=== PATIENT | female | born 1950 | race African-American/Black ===

== ENCOUNTER 2017-11-07 10:04 | Day surgery (SDC) | payer MEDICARE, OTHER ==
[~2017-11-07] VITALS: Ht 165.1 cm; Wt 70.0 kg
[~2017-11-07 10:04] MED LIST: ALBU2.5V NEB; ALPR-475 PO; ASCO500T23 PO; BUPIVACAINE/PF 0.5% ONE; CYAN10002 IM; EPINEPHRINE 1 MG/ML, 1ML ONE; FOLI0.4T2 PO; GABA600T2 PO; HYDR-3240 PO; HYDR-3245 PO; HYDR-882 PO; HYDR10TA PO; LEVO112T41 PO; LEVO125T PO; LEVO125T5 PO; MULT-658 PO; OLOP2.5D EACHEYE; OMEG1CAP23 PO; OXYC5TAB3 PO; PYRI25TA2 PO; PYRI60TA2 PO; SPIR25TA3 PO; VITA200C33 PO
[2017-11-07] MEDS ORDERED: FENTANYL PF 250 MCG/5ML ONE (10:21)
[2017-11-07] MEDS ORDERED: MIDAZOLAM 1 MG/ML, 2ML ONE (10:21)
[2017-11-07] MEDS ORDERED: PROPOFOL 10 MG/ML, 20ML ONE (10:22)
[2017-11-07] MEDS ORDERED: CEFAZOLIN 1,000 MG ONE ×3 (10:22→13:05)
[2017-11-07] MEDS ORDERED: WATER-INJECTION,STERILE 10 ML IV ONE (10:22)
[2017-11-07] MEDS ORDERED: DEXAMETHASONE 4 MG/ML, 1ML ONE ×2 (10:23)
[2017-11-07] MEDS ORDERED: LIDOCAINE-MPF 1%, 2ML ONE (10:30)
[2017-11-07] MEDS ORDERED: ISOSULFAN BLUE 10 MG/ML, 5ML IV ONE (11:37)
[2017-11-07 11:45] VITALS: BP 105/61
[2017-11-07] MEDS ORDERED: LACTATED RINGERS 1,000 ML IV SCH (11:49)
[2017-11-07] MEDS ORDERED: HYDROCORTISONE 100 MG INJ. ONE (11:54)
[2017-11-07] MEDS ORDERED: GABAPENTIN 300 MG CAPSULE ONE (11:56)
[2017-11-07] MEDS ORDERED: ONDANSETRON ODT 8 MG PO PRN (12:00)
[2017-11-07] MEDS ORDERED: OXYcodone 5 MG/5 ML ORAL.SOL UDC PO PRN (12:00)
[2017-11-07] MEDS ORDERED: hydrALAzine 20 MG/ML, 1ML IV PRN (12:00)
[2017-11-07] MEDS ORDERED: ALBUTEROL SULFATE 2.5 MG/3 ML NPPB PRN (12:00)
[2017-11-07] MEDS ORDERED: PROMETHAZINE 25 MG/ML, 1ML IV PRN (12:00)
[2017-11-07] MEDS ORDERED: GABAPENTIN 300 MG CAPSULE PO ONE (12:00)
[2017-11-07] MEDS ORDERED: LABETALOL 5MG/ML, 20ML IV PRN (12:00)
[2017-11-07] MEDS ORDERED: MEPERIDINE/PF 25MG/0.5ML IVPush PRN (12:00)
[2017-11-07] MEDS ORDERED: PROMETHAZINE 25 MG SUPP PR PRN (12:00)
[2017-11-07] MEDS ORDERED: HYDROmorphone 1 MG/ML, 1ML IV PRN (12:00)
[2017-11-07] MEDS ORDERED: PROMETHAZINE 12.5 MG SUPP PR PRN (12:00)
[2017-11-07] MEDS ORDERED: ACETAMINOPHEN 500 MG TABLET PO ONE (12:00)
[2017-11-07] MEDS ORDERED: SCOPOLAMINE PATCH, 1.5MG PATCH.TD72 TD ONE (12:00)
[2017-11-07] MEDS ORDERED: ONDANSETRON ODT 8 MG PO ONE (12:00)
[2017-11-07] MEDS ORDERED: MORPHINE SULFATE 4 MG/ML, 1ML IVPush PRN ×2 (12:00→17:30)
[2017-11-07] MEDS ORDERED: GENTAMICIN 80 MG/2 ML ONE (13:05)
[2017-11-07] MEDS ORDERED: BACITRACIN 50,000 UNIT ONE (13:06)
[2017-11-07] MEDS ORDERED: FENTANYL PF 100 MCG/2ML ONE (14:20)
[2017-11-07] MEDS: FENTANYL PF 100 MCG/2ML IV PRN ×2 (14:25→15:25)
[2017-11-07] MEDS ORDERED: OXYcodone 5 MG/5 ML ORAL.SOL UDC ONE (15:17)
[2017-11-07] MEDS ORDERED: ONDANSETRON 2MG/ML, 2ML IVPush PRN (17:30)
[2017-11-07] MEDS ORDERED: ONDANSETRON ODT 4 MG PO PRN (17:30)
[2017-11-07 18:33] VITALS: BP 133/64
== END 2017-11-07 18:58 | disposition home or self-care (01) ==
LOC: OUT 10:04 → EDSTATUS 12:30 → 4NOR 16:27 → OUT 18:58
PROVIDERS: ATTEND Surgery
DX: C50.912 Malignant neoplasm of unspecified site of left female breast (principal); Z87.891 Personal history of nicotine dependence; E03.9 Hypothyroidism, unspecified
CPT/HCPCS: 19303; 38525; 38792; 88305; 88307; 88333; 93005; A9541; C1729; C1762; J0171; J0690; J1100; J1580; J1720; J2250; J2704; J3010; J3490; Q0162

== ENCOUNTER 2017-11-29 18:31 | Day surgery (SDC) | payer MEDICARE, OTHER ==
[~2017-11-29 18:31] MED LIST changes: -BUPIVACAINE/PF 0.5% ONE; -EPINEPHRINE 1 MG/ML, 1ML ONE
[2017-11-29] MEDS ORDERED: MIDAZOLAM 1 MG/ML, 2ML ONE (19:34)
[2017-11-29] MEDS ORDERED: PROPOFOL 10 MG/ML, 20ML ONE (19:34)
[2017-11-29] MEDS ORDERED: FENTANYL PF 100 MCG/2ML ONE ×3 (19:34→20:56)
[2017-11-29 19:35] VITALS: BP 117/75
[2017-11-29] MEDS ORDERED: ROCURONIUM 10MG/ML,5ML ONE ×2 (19:35)
[2017-11-29] MEDS ORDERED: MORPHINE SULFATE 4 MG/ML, 1ML IVPush PRN (20:00)
[2017-11-29] MEDS ORDERED: PROMETHAZINE 12.5 MG SUPP PR PRN (20:00)
[2017-11-29] MEDS ORDERED: MEPERIDINE/PF 25MG/0.5ML IVPush PRN (20:00)
[2017-11-29] MEDS ORDERED: hydrALAzine 20 MG/ML, 1ML IV PRN (20:00)
[2017-11-29] MEDS ORDERED: ONDANSETRON ODT 8 MG PO PRN (20:00)
[2017-11-29] MEDS ORDERED: LABETALOL 5MG/ML, 20ML IV PRN (20:00)
[2017-11-29] MEDS ORDERED: OXYcodone 5 MG/5 ML ORAL.SOL UDC PO PRN (20:00)
[2017-11-29] MEDS ORDERED: ACETAMINOPHEN 325 MG TABLET PO PRN (20:00)
[2017-11-29] MEDS ORDERED: HYDROmorphone 1 MG/ML, 1ML IV PRN (20:00)
[2017-11-29] MEDS ORDERED: BUPIVACAINE/PF 0.25% ONE (20:06)
[2017-11-29] MEDS ORDERED: BACITRACIN 50,000 UNIT ONE (20:06)
[2017-11-29] MEDS ORDERED: EPHEDRINE 50 MG/ML, 1ML ONE (20:06)
[2017-11-29] MEDS ORDERED: EPINEPHRINE 1 MG/ML, 1ML ONE (20:06)
[2017-11-29] MEDS ORDERED: CEFAZOLIN 1,000 MG ONE ×3 (20:06→20:23)
[2017-11-29] MEDS ORDERED: GENTAMICIN 80 MG/2 ML ONE (20:06)
[2017-11-29] MEDS ORDERED: DEXAMETHASONE 4 MG/ML, 1ML ONE (20:15)
[2017-11-29] MEDS ORDERED: ONDANSETRON 2MG/ML, 2ML ONE (20:47)
[2017-11-29] MEDS ORDERED: ACETAMINOPHEN 650 MG/20.3 ML UDC ONE (20:56)
[2017-11-29] MEDS ORDERED: OXYcodone 5 MG/5 ML ORAL.SOL UDC ONE (20:56)
[2017-11-29] MEDS: FENTANYL PF 100 MCG/2ML IV PRN ×4 (21:03→21:33)
[2017-11-29] MEDS ORDERED: FLUC150T PO (22:18)
[2017-11-29] MEDS ORDERED: SULF1TAB24 PO (22:18)
[2017-11-29] MEDS ORDERED: AMOX1TAB64 PO (22:19)
== END 2017-11-29 23:00 | disposition home or self-care (01) ==
LOC: OR 18:31 → 4NOR 18:49 → OR 23:00
PROVIDERS: ATTEND Plastic Surgery
DX: T85.79XA Infection and inflammatory reaction due to other internal prosthetic devices, implants and grafts, initial encounter (principal); Y83.8 Other surgical procedures as the cause of abnormal reaction of the patient, or of later complication, without mention of misadventure at the time of the procedure; Y92.89 Other specified places as the place of occurrence of the external cause; Z85.3 Personal history of malignant neoplasm of breast
CPT/HCPCS: 11971; 87070; 87075; 87077; 87186; 87205; C1729; J0690; J1100; J1580; J2250; J2405; J2704; J3010; J3490; J0171

== ENCOUNTER → 2018-04-16 | Outpatient (CLI) | payer MEDICARE, OTHER ==
[~2018-04-16] MED LIST changes: +AMOX1TAB64 PO; +FLUC150T PO; +HYDR-3653 PO; -HYDR-882 PO; +LACT1CAP35 PO; -SPIR25TA3 PO; +SPIR25TA5 PO; +SULF1TAB24 PO; +VENL37.57 PO; +[UNRECOGNIZED DRUG - REMARK] PO
[2018-04-16 14:26] LABS: BASOPHILS # (AUTO) 0.05 x10^3/uL (0-0.1); BASOPHILS % (AUTO) 1 % (0-1); EOSINOPHILS # (AUTO) 0.02 x10^3/uL (0-0.4); EOSINOPHILS % (AUTO) 0 % (1-7); LYMPHOCYTES # (AUTO) 1.76 x10^3/uL (1-3.4); LYMPHOCYTES % (AUTO) 30 % (22-44); MD NO; MEAN CORPUSCULAR HEMOGLOBIN 29.9 pg (27.0-34.8); MEAN CORPUSCULAR HGB CONC 33.5 g/dL (32.4-35.8); MEAN CORPUSCULAR VOLUME 89.2 fL (80-100); MEAN PLATELET VOLUME 7.4 fL (7.4-10.4); MONOCYTES # (AUTO) 0.53 x10^3/uL (0.2-0.8); MONOCYTES % (AUTO) 9 % (2-9); NEUTROPHILS # (AUTO) 3.56 x10^3/uL (1.8-6.8); NEUTROPHILS % (AUTO) 60 % (42-75); PLATELET COUNT 259 x10^3/uL (130-400); RED BLOOD COUNT 5.33 x10^6/uL (3.82-5.3); RED CELL DISTRIBUTION WIDTH 12.7 % (9.6-15.2)
[2018-04-16 14:27] LABS: ALBUMIN 3.8 g/dL (3.4-5.0); ANION GAP 4 mmol/L (5-15); CALCIUM 9.5 mg/dL (8.5-10.1); CHLORIDE 105 mmol/L (98-107)
[2018-04-16 14:31] LABS: ALANINE AMINOTRANSFERASE 28 U/L (12-78); ALKALINE PHOSPHATASE 63 U/L (45-117); BILIRUBIN,TOTAL 0.6 mg/dL (0.2-1.0); CREATININE 0.88 mg/dL (0.55-1.02); TOTAL PROTEIN 8.3 g/dL (6.4-8.2)
== END | disposition home or self-care (01) ==
LOC: STAR 13:04
PROVIDERS: ATTEND Plastic Surgery
DX: Z01.818 Encounter for other preprocedural examination (principal); C50.412 Malignant neoplasm of upper-outer quadrant of left female breast; Z85.3 Personal history of malignant neoplasm of breast
CPT/HCPCS: 36415; 80053; 85025; 93005

== ENCOUNTER 2018-07-24 13:27 | Day surgery (SDC) | payer MEDICARE, OTHER ==
[~2018-07-24] VITALS: Ht 165.1 cm; Wt 69.1 kg
[~2018-07-24 13:27] MED LIST changes: -GABA600T2 PO; +GABA600T7 PO; +THYR90TA PO
[2018-07-24] MEDS ORDERED: LACTATED RINGERS 1,000 ML IV SCH ×2 (14:10→21:43)
[2018-07-24] MEDS ORDERED: GABAPENTIN 300 MG CAPSULE PO ONE (14:30)
[2018-07-24] MEDS ORDERED: ACETAMINOPHEN 500 MG TABLET PO ONE (14:30)
[2018-07-24] MEDS ORDERED: EPINEPHRINE 1 MG/ML, 1ML ONE (17:04)
[2018-07-24] MEDS ORDERED: GENTAMICIN 80 MG/2 ML ONE (17:04)
[2018-07-24] MEDS ORDERED: CEFAZOLIN 1,000 MG ONE (17:04)
[2018-07-24] MEDS ORDERED: LIDOCAINE 1%, 20ML ONE (17:05)
[2018-07-24] MEDS ORDERED: BACITRACIN 50,000 UNIT ONE (17:05)
[2018-07-24] MEDS ORDERED: MIDAZOLAM 1 MG/ML, 2ML ONE (17:33)
[2018-07-24] MEDS ORDERED: FENTANYL PF 100 MCG/2ML ONE ×2 (17:33→19:56)
[2018-07-24] MEDS ORDERED: SODIUM BICARBONATE 1 MEQ/ML, 50ML VIAL ONE (17:36)
[2018-07-24] MEDS ORDERED: LIDOCAINE-MPF 2% ,5ML ONE (17:36)
[2018-07-24] MEDS ORDERED: SUCCINYLCHOLINE 20 MG/ML, 10ML ONE (17:40)
[2018-07-24] MEDS ORDERED: GLYCOPYRROLATE 0.2MG/1ML, 5ML ONE (17:40)
[2018-07-24] MEDS ORDERED: ROCURONIUM 10 MG/ML,10ML ONE (17:40)
[2018-07-24] MEDS ORDERED: PROPOFOL 10 MG/ML, 20ML ONE (17:40)
[2018-07-24] MEDS ORDERED: ONDANSETRON 2MG/ML, 2ML ONE (17:40)
[2018-07-24] MEDS ORDERED: NEOSTIGMINE 1 MG/ML, 10ML ONE (17:40)
[2018-07-24] MEDS ORDERED: DEXAMETHASONE 4 MG/ML, 1ML ONE (17:40)
[2018-07-24] MEDS ORDERED: OXYcodone 5 MG/5 ML ORAL.SOL UDC ONE (19:56)
[2018-07-24] MEDS ORDERED: HYDROmorphone 1 MG/ML, 1ML ONE (19:56)
[2018-07-24] MEDS ORDERED: LABETALOL 5MG/ML, 20ML IV PRN (20:30)
[2018-07-24] MEDS ORDERED: MEPERIDINE/PF 25MG/0.5ML IVPush PRN (20:30)
[2018-07-24] MEDS ORDERED: hydrALAzine 20 MG/ML, 1ML IV PRN (20:30)
[2018-07-24] MEDS ORDERED: ONDANSETRON 2MG/ML, 2ML IV PRN (20:30)
[2018-07-24] MEDS ORDERED: HYDROmorphone 2 MG/ML, 1ML IVPush PRN ×2 (20:30→22:00)
[2018-07-24] MEDS ORDERED: OXYcodone 5 MG/5 ML ORAL.SOL UDC PO PRN (20:30)
[2018-07-24] MEDS ORDERED: PROMETHAZINE 25 MG/ML, 1ML IV PRN (20:30)
[2018-07-24] MEDS ORDERED: FENTANYL PF 100 MCG/2ML IV PRN (20:30)
[2018-07-24] MEDS ORDERED: HYDROcodone/APAP 5/325 TABLET PO PRN (22:00)
== END 2018-07-24 23:34 | disposition home or self-care (01) ==
LOC: OR 13:27 → 4NOR 21:10 → OR 23:34
PROVIDERS: ATTEND Plastic Surgery
DX: N65.1 Disproportion of reconstructed breast (principal); Z87.891 Personal history of nicotine dependence; Z98.890 Other specified postprocedural states
CPT/HCPCS: 11970; 19316; 19366; 20926; 93005; C1789; J0171; J0330; J0690; J1100; J1170; J1580; J2250; J2405; J2704; J2710; J3010; J3490; J7120; G0378

== ENCOUNTER → 2018-10-30 | Outpatient (CLI) | payer MEDICARE, OTHER ==
[~2018-10-30] MED LIST changes: +B12; +B6 PO; +HYDR-3622 PO
[2018-10-30 13:49] LABS: BASOPHILS # (AUTO) 0.03 x10^3/uL (0-0.1); BASOPHILS % (AUTO) 1 % (0-1); EOSINOPHILS # (AUTO) 0.07 x10^3/uL (0-0.4); EOSINOPHILS % (AUTO) 2 % (1-7); LYMPHOCYTES % (AUTO) 39 % (22-44); MD NO; MEAN CORPUSCULAR VOLUME 90.8 fL (80-100); MEAN PLATELET VOLUME 6.7 fL (7.4-10.4); MONOCYTES # (AUTO) 0.37 x10^3/uL (0.2-0.8); MONOCYTES % (AUTO) 8 % (2-9); NEUTROPHILS # (AUTO) 2.35 x10^3/uL (1.8-6.8); NEUTROPHILS % (AUTO) 51 % (42-75); PLATELET COUNT 255 x10^3/uL (130-400); RED BLOOD COUNT 4.88 x10^6/uL (3.82-5.3); RED CELL DISTRIBUTION WIDTH 14.1 % (9.6-15.2)
[2018-10-30 14:00] LABS: ALANINE AMINOTRANSFERASE 30 U/L (12-78); ALBUMIN 3.7 g/dL (3.4-5.0); ANION GAP 4 mmol/L (5-15); CALCIUM 9.2 mg/dL (8.5-10.1); CHLORIDE 108 mmol/L (98-107); CREATININE 0.84 mg/dL (0.55-1.02)
[2018-10-30 14:02] LABS: ALKALINE PHOSPHATASE 51 U/L (45-117); BILIRUBIN,TOTAL 0.2 mg/dL (0.2-1.0); TOTAL PROTEIN 7.7 g/dL (6.4-8.2)
== END | disposition home or self-care (01) ==
LOC: STAR 12:38
PROVIDERS: ATTEND Plastic Surgery
DX: Z01.818 Encounter for other preprocedural examination (principal); C50.412 Malignant neoplasm of upper-outer quadrant of left female breast; N65.0 Deformity of reconstructed breast; Z85.3 Personal history of malignant neoplasm of breast; R00.1 Bradycardia, unspecified
CPT/HCPCS: 36415; 80053; 85025; 93005

== ENCOUNTER 2018-11-03 13:54 | Day surgery (SDC) | payer MEDICARE, OTHER ==
[~2018-11-03] VITALS: Ht 165.1 cm; Wt 68.9 kg
[2018-11-03] MEDS ORDERED: LACTATED RINGERS 1,000 ML IV SCH ×2 (14:11→20:30)
[2018-11-03] MEDS ORDERED: ACETAMINOPHEN 500 MG TABLET PO ONE (14:30)
[2018-11-03] MEDS ORDERED: GABAPENTIN 300 MG CAPSULE PO ONE (14:30)
[2018-11-03] MEDS ORDERED: SCOPOLAMINE PATCH, 1.5MG PATCH.TD72 TD ONE (14:30)
[2018-11-03 14:59] VITALS: BP 137/76
[2018-11-03] MEDS ORDERED: FENTANYL PF 100 MCG/2ML ONE ×3 (16:14→18:32)
[2018-11-03] MEDS ORDERED: MIDAZOLAM 1 MG/ML, 2ML ONE (16:14)
[2018-11-03] MEDS ORDERED: CEFAZOLIN 1,000 MG ONE ×2 (16:43→17:48)
[2018-11-03] MEDS ORDERED: GENTAMICIN 80 MG/2 ML ONE (16:43)
[2018-11-03] MEDS ORDERED: BACITRACIN 50,000 UNIT ONE (16:44)
[2018-11-03] MEDS ORDERED: EPINEPHRINE 1 MG/ML, 1ML ONE (16:44)
[2018-11-03] MEDS ORDERED: SODIUM BICARBONATE 1 MEQ/ML, 50ML VIAL ONE (16:44)
[2018-11-03] MEDS ORDERED: LIDOCAINE/MPF 2%-EPI 1:200K, 20 ML ONE (16:45)
[2018-11-03] MEDS ORDERED: LIDOCAINE-MPF 2% ,5ML ONE (16:45)
[2018-11-03] MEDS ORDERED: DIPHENHYDRAMINE 50 MG/ML, 1ML IVPush PRN ×2 (17:00→20:30)
[2018-11-03] MEDS ORDERED: HALOPERIDOL 5 MG/ML IV PRN (17:00)
[2018-11-03] MEDS ORDERED: MEPERIDINE/PF 25MG/0.5ML IVPush PRN (17:00)
[2018-11-03] MEDS ORDERED: PROCHLORPERAZINE 5 MG/ML, 2ML IV PRN (17:00)
[2018-11-03] MEDS ORDERED: PROMETHAZINE 25 MG/ML, 1ML IV PRN (17:00)
[2018-11-03] MEDS ORDERED: METOPROLOL 1 MG/ML, 5ML IV PRN (17:00)
[2018-11-03] MEDS ORDERED: LABETALOL 5MG/ML, 20ML IV PRN (17:00)
[2018-11-03] MEDS ORDERED: hydrALAzine 20 MG/ML, 1ML IV PRN (17:00)
[2018-11-03] MEDS ORDERED: GLYCOPYRROLATE 0.2MG/1ML, 5ML ONE (17:05)
[2018-11-03] MEDS ORDERED: ROCURONIUM 10 MG/ML,10ML ONE (17:05)
[2018-11-03] MEDS ORDERED: PROPOFOL 10 MG/ML, 20ML ONE (17:48)
[2018-11-03] MEDS ORDERED: SUCCINYLCHOLINE 20 MG/ML, 10ML ONE (17:48)
[2018-11-03] MEDS ORDERED: ONDANSETRON 2MG/ML, 2ML ONE (17:48)
[2018-11-03] MEDS ORDERED: NEOSTIGMINE 1 MG/ML, 10ML ONE (17:48)
[2018-11-03] MEDS ORDERED: DEXAMETHASONE 4 MG/ML, 1ML ONE (17:48)
[2018-11-03] MEDS ORDERED: HYDROmorphone 2 MG/ML, 1ML ONE (18:32)
[2018-11-03] MEDS: FENTANYL PF 100 MCG/2ML IV PRN ×2 (18:36→19:00)
[2018-11-03] MEDS: HYDROmorphone 2 MG/ML, 1ML IVPush PRN ×3 (18:37→19:06)
[2018-11-03] MEDS ORDERED: MORPHINE SULFATE 4 MG/ML, 1ML IVPush PRN (20:30)
[2018-11-03] MEDS ORDERED: HYDROcodone/APAP 5/325 TABLET PO PRN (20:30)
[2018-11-03] MEDS ORDERED: ONDANSETRON 2MG/ML, 2ML IVPush PRN (20:30)
== END 2018-11-03 21:35 | disposition home or self-care (01) ==
LOC: OUT 13:54 → 4NOR 19:50 → OUT 21:35
PROVIDERS: ATTEND Plastic Surgery
DX: N65.0 Deformity of reconstructed breast (principal); N65.1 Disproportion of reconstructed breast; E03.9 Hypothyroidism, unspecified; Z85.3 Personal history of malignant neoplasm of breast
CPT/HCPCS: 19350; 19380; 20926; C1729; J0171; J0330; J0690; J1100; J1170; J1580; J2250; J2405; J2704; J2710; J3010; J3490; J7120; G0378